=== PATIENT | male | born 1970 | race Native Hawaiian/Other Pacific Islander ===

== ENCOUNTER 2016-10-01 00:15 | Emergency (ER) | payer OTHER ==
[~2016-10-01] VITALS: Ht 180.3 cm; Wt 77.6 kg
== END 2016-10-01 03:48 | disposition home or self-care (01) ==
LOC: ED 00:15
DX: S43.51XA Sprain of right acromioclavicular joint, initial encounter (principal)
CPT/HCPCS: 36415; 80307; 80320; 99283; G0479; J1885

== ENCOUNTER 2018-06-18 16:58 | Emergency (ER) | payer OTHER ==
[~2018-06-18] VITALS: Ht 177.8 cm; Wt 45.4 kg
[2018-06-18 17:45] LABS: PLATELET COUNT 164 K/uL (142-355)
[2018-06-18 18:18] LABS: POTASSIUM 3.8 mmol/L (3.6-5.2)
[2018-06-18 19:46] VITALS: BP 161/99; TEMP 98.8
== END 2018-06-18 19:50 | disposition home or self-care (01) ==
LOC: ED 16:58
PROVIDERS: Family Medicine
DX: J20.9 Acute bronchitis, unspecified (principal); F10.10 Alcohol abuse, uncomplicated
CPT/HCPCS: 80053; 80307; 80320; 81000; 85027; 94664; 96372; 99283; J2930

== ENCOUNTER 2018-12-25 13:34 | Inpatient (IN) | payer OTHER ==
[2018-12-25] VITALS (16 sets, daily range): BP systolic 119–170; BP diastolic 75–113; TEMP 98.1–98.4; Ht 180.3 cm; Wt 72.6 kg
[~2018-12-25] VITALS: Ht 180.3 cm; Wt 72.6 kg
[2018-12-25 15:01] LABS: PLATELET COUNT 73 K/uL (142-355)
[2018-12-25 15:06] LABS: POTASSIUM 4.3 mmol/L (3.6-5.2); SODIUM 130 mmol/L (136-145)
[2018-12-25 15:15] LABS: PARTIAL THROMBOPLASTIN TIME 26.5 SECONDS (24.5-33.6)
[2018-12-26] VITALS (14 sets, daily range): BP systolic 112–142; BP diastolic 72–98; TEMP 97.2–98
[2018-12-26 06:13] LABS: POTASSIUM 3.7 mmol/L (3.6-5.2); SODIUM 131 mmol/L (136-145)
[2018-12-26 06:20] LABS: PLATELET COUNT 59 K/uL (142-355)
[2018-12-27] VITALS (9 sets, daily range): BP systolic 124–150; BP diastolic 84–109; TEMP 98.3–98.7
[2018-12-27 06:00] LABS: POTASSIUM 3.2 mmol/L (3.6-5.2)
[2018-12-27 06:46] LABS: PLATELET COUNT 52 K/uL (142-355)
== END 2018-12-27 17:27 | disposition home or self-care (01) | DRG 391 ==
LOC: ED 13:34 → ICU 18:01 → MED/SURG 18:02 → ICU 18:03
PROVIDERS: Family Medicine; Internal Medicine; ADMIT Emergency Medicine Emergency Medical Services
DX: A08.39 Other viral enteritis (principal); K85.20 Alcohol induced acute pancreatitis without necrosis or infection; B37.0 Candidal stomatitis; E87.1 Hypo-osmolality and hyponatremia; E87.2 Acidosis; K70.10 Alcoholic hepatitis without ascites; D72.828 Other elevated white blood cell count; Z72.0 Tobacco use; R62.7 Adult failure to thrive; E87.8 Other disorders of electrolyte and fluid balance, not elsewhere classified; E16.1 Other hypoglycemia
CPT/HCPCS: 36415; 80053; 80307; 80320; 81000; 82150; 82248; 82272; 82550; 83605; 83630; 83690; 83735; 84484; 85007; 85027; 85610; 85730; 86318; 86705; 86803; 87015; 87040; 87045; 87324; 87328; 87329; 87449; 87502; 87535; 87899; 93005; 96365; 96366; 96375; 99285; G0432; J0696; J1450; J1885; J2060; J2270; J2560; J3411; J3475; J3490; J7060; Q9963

== ENCOUNTER 2019-10-18 11:29 | Outpatient (CLI) | payer OTHER | END 2019-10-18 20:08 | disposition home or self-care (01) | LOC: RAD 11:29 | DX: R49.0 Dysphonia (principal) ==

== ENCOUNTER 2020-05-22 15:41 | Emergency (ER) | payer OTHER ==
[~2020-05-22] VITALS: Ht 180.3 cm; Wt 95.3 kg
[2020-05-22 15:48] VITALS: TEMP 97.4
[2020-05-22 16:58] LABS: PLATELET COUNT 271 K/uL (142-355)
[2020-05-22 17:07] LABS: POTASSIUM 4.4 mmol/L (3.6-5.2); SODIUM 128 mmol/L (136-145)
[2020-05-22 17:16] LABS: PARTIAL THROMBOPLASTIN TIME 28.3 SECONDS (24.5-33.6)
[2020-05-22 17:20] VITALS: BP 184/106
== END 2020-05-22 17:30 | disposition home or self-care (01) ==
LOC: ED 15:41
PROVIDERS: Hospitalist
DX: G89.29 Other chronic pain (principal); G62.9 Polyneuropathy, unspecified; I10 Essential (primary) hypertension; F10.20 Alcohol dependence, uncomplicated; Y90.3 Blood alcohol level of 60-79 mg/100 ml; F17.210 Nicotine dependence, cigarettes, uncomplicated
CPT/HCPCS: 36415; 80053; 80307; 80320; 82550; 82553; 83690; 83880; 84484; 85027; 85379; 85610; 85730; 93005; 96374; 99284; J0360

== ENCOUNTER 2020-05-23 11:59 | Emergency (ER) | payer OTHER ==
[~2020-05-23] VITALS: Ht 180.3 cm; Wt 95.3 kg
[2020-05-23 12:27] VITALS: BP 182/112; TEMP 98
== END 2020-05-23 13:40 | disposition home or self-care (01) ==
LOC: ED 11:59
DX: Z79.899 Other long term (current) drug therapy (principal); F31.89 Other bipolar disorder; M79.604 Pain in right leg; S80.812A Abrasion, left lower leg, initial encounter
CPT/HCPCS: 80307; 81000; 99283

== ENCOUNTER 2020-08-20 10:28 | Emergency (ER) | payer OTHER ==
[~2020-08-20] VITALS: Ht 180.3 cm; Wt 95.3 kg
[2020-08-20 10:42] VITALS: TEMP 97.7
[2020-08-20 12:21] VITALS: BP 142/84
== END 2020-08-20 12:25 | disposition home or self-care (01) ==
LOC: ED 10:28
DX: S11.85XA Open bite of other specified part of neck, initial encounter (principal); S80.812A Abrasion, left lower leg, initial encounter; S80.811A Abrasion, right lower leg, initial encounter; W54.0XXA Bitten by dog, initial encounter; W17.89XA Other fall from one level to another, initial encounter; Y93.55 Activity, bike riding; Y92.89 Other specified places as the place of occurrence of the external cause
CPT/HCPCS: 99283

== ENCOUNTER 2020-08-21 21:39 | Emergency (ER) | payer OTHER ==
[~2020-08-21] VITALS: Ht 180.3 cm; Wt 95.3 kg
[2020-08-21 23:05] VITALS: BP 134/89; TEMP 98.3
== END 2020-08-21 23:05 | disposition home or self-care (01) ==
LOC: ED 21:39
PROC: 0HQ1XZZ Repair Face Skin, External Approach (ICD-10-PCS; principal; 2020-08-21)
DX: S01.111A Laceration without foreign body of right eyelid and periocular area, initial encounter (principal); S00.11XA Contusion of right eyelid and periocular area, initial encounter; Y04.2XXA Assault by strike against or bumped into by another person, initial encounter; Y92.89 Other specified places as the place of occurrence of the external cause
CPT/HCPCS: 96372; 99283; J0690; J7040

== ENCOUNTER 2020-08-22 13:57 | Emergency (ER) | payer OTHER ==
[~2020-08-22] VITALS: Ht 180.3 cm; Wt 95.3 kg
[2020-08-22 14:10] VITALS: BP 131/96; TEMP 98
== END 2020-08-22 14:30 | disposition home or self-care (01) ==
LOC: ED 13:57
DX: Z53.21 Procedure and treatment not carried out due to patient leaving prior to being seen by health care provider (principal)
CPT/HCPCS: 99281

== ENCOUNTER 2020-08-28 15:14 | Emergency (ER) | payer OTHER | END 2020-08-28 18:38 | disposition home or self-care (01) | LOC: ED 15:14 | DX: Z48.02 Encounter for removal of sutures (principal); S01.111D Laceration without foreign body of right eyelid and periocular area, subsequent encounter; X58.XXXD Exposure to other specified factors, subsequent encounter; Y92.89 Other specified places as the place of occurrence of the external cause ==

== ENCOUNTER 2020-10-19 00:50 | Emergency (ER) | payer OTHER ==
[~2020-10-19] VITALS: Ht 180.3 cm; Wt 81.6 kg
[2020-10-19 02:45] VITALS: BP 131/98; TEMP 98.2
== END 2020-10-19 02:45 ==
LOC: ED 00:50
PROC: 0HQ1XZZ Repair Face Skin, External Approach (ICD-10-PCS; principal; 2020-10-19)
DX: S01.111A Laceration without foreign body of right eyelid and periocular area, initial encounter (principal); S20.211A Contusion of right front wall of thorax, initial encounter; S50.811A Abrasion of right forearm, initial encounter; Y35.813A Legal intervention involving manhandling, suspect injured, initial encounter; Y92.098 Other place in other non-institutional residence as the place of occurrence of the external cause
CPT/HCPCS: 99283

== ENCOUNTER 2020-11-03 10:40 | Emergency (ER) | payer OTHER ==
[~2020-11-03] VITALS: Ht 180.3 cm; Wt 81.6 kg
[2020-11-03 12:45] VITALS: BP 142/93; TEMP 98.7
== END 2020-11-03 12:45 | disposition home or self-care (01) ==
LOC: ED 10:40
DX: H92.21 Otorrhagia, right ear (principal); S30.811A Abrasion of abdominal wall, initial encounter; H91.91 Unspecified hearing loss, right ear; Y00.XXXA Assault by blunt object, initial encounter; Y92.512 Supermarket, store or market as the place of occurrence of the external cause
CPT/HCPCS: 99283